=== PATIENT | female | born 1985 | race Caucasian/White ===

== ENCOUNTER 2017-06-05 18:33 | Emergency (ER) | payer OTHER, BC ==
[~2017-06-05] VITALS: Ht 170.2 cm; Wt 205.0 kg
[2017-06-05] MEDS ORDERED: NORFLEX100 MG PO (19:42)
[2017-06-05] MEDS ORDERED: NAPROSYN500 MG PO (19:42)
[2017-06-05 19:56] VITALS: BP 134/88
== END 2017-06-05 19:58 | disposition home or self-care (01) ==
LOC: ER 18:33
DX: S39.012A Strain of muscle, fascia and tendon of lower back, initial encounter (principal); S29.012A Strain of muscle and tendon of back wall of thorax, initial encounter; F41.9 Anxiety disorder, unspecified; V43.02XA Car driver injured in collision with other type car in nontraffic accident, initial encounter; Y93.89 Activity, other specified; Y92.412 Parkway as the place of occurrence of the external cause; Y99.8 Other external cause status